=== PATIENT | male | born 1990 | race Caucasian/White ===

== ENCOUNTER → 2023-04-23 | Outpatient (CLI) | payer OTHER ==
[~2023-04-23] MED LIST: ISOVUE-300 61% 100ML VIAL As Ordered ONE; LIDOCAINE 1% MDV 20ML VIAL As Ordered ONE; PROHANCE 279.3MG/ML 5ML VIAL As Ordered ONE
== END ==
LOC: M RAD 06:13
PROVIDERS: ATTEND Physician Assistant
DX: M19.011 Primary osteoarthritis, right shoulder (principal); M25.511 Pain in right shoulder; Z13.89 Encounter for screening for other disorder
CPT/HCPCS: 23350; 73223; 77002; A9576; Q9967

== ENCOUNTER 2023-06-30 09:53 | Emergency (ER) | payer OTHER ==
[~2023-06-30] VITALS: Ht 177.8 cm; Wt 63.6 kg
[2023-06-30 10:55] LABS: BASO % 0.2 % (0.0-1.0); EOS % 0.1 % (0.0-3.0); HEMATOCRIT 46.9 % (42.0-52.0); HEMOGLOBIN 15.3 g/dl (13.5-17.5); LYMPH # 0.3 10^3/uL (1.5-5.0); MEAN CORPUSCULAR HEMOGLOBIN 29.5 pg (27.0-33.0); MEAN CORPUSCULAR HGB CONC 32.6 g/dl (32.0-36.5); MEAN CORPUSCULAR VOLUME 90.5 fl (80.0-96.0); MONO # 0.5 10^3/uL (0.0-0.8); MONO % 2.9 % (2.0-8.0); NEUTROPHILS # 15.3 10^3/uL (1.5-8.5); NEUTROPHILS % 94.4 % (36.0-66.0); PLATELET COUNT, AUTOMATED 229 10^3/uL (150-450); RED BLOOD COUNT 5.18 10^6/uL (4.30-6.10); WHITE BLOOD COUNT 16.2 10^3/uL (4.0-10.0)
[2023-06-30 11:21] LABS: LIPASE 31 U/L (12-53)
[2023-06-30 11:23] LABS: ALBUMIN 4.1 G/DL (3.2-5.2); ALKALINE PHOSPHATASE 33 U/L (46-116); ALT/SGPT 31 U/L (7.0-40); AST/SGOT 19 U/L (<34); BILIRUBIN,DIRECT 0.3 MG/DL (<0.4); BILIRUBIN,TOTAL 1.1 MG/DL (0.3-1.2); BLOOD UREA NITROGEN 16 MG/DL (9-23); CALCIUM LEVEL 9.2 MG/DL (8.5-10.1); CARBON DIOXIDE LEVEL 24 MMOL/L (20-31); CHLORIDE LEVEL 106 MMOL/L (98-107); CREATININE FOR GFR 0.74 MG/DL (0.70-1.30); GLOMERULAR FILTRATION RATE > 60.0 (>60); GLUCOSE, FASTING 105 MG/DL (60-100); SODIUM LEVEL 140 MMOL/L (136-145); TOTAL PROTEIN 6.7 G/DL (5.7-8.2)
[2023-06-30 11:26] LABS: RSV AMPLIFICATION NEGATIVE (NEGATIVE)
[2023-06-30] MEDS ORDERED: ISOVUE-370 76% 100ML VIAL As Ordered ONE (12:36)
[2023-06-30 12:42] LABS: CK-MB VALUE MASS < 1.0 NG/ML (<3.6)
[2023-06-30 13:00] LABS: CPK CREATINE PHOSPHOKINASE 168 U/L (46-171); MB/CK RELATIVE INDEX 0.59 (< OR =4)
[2023-06-30] MEDS: NS 1,000 ML IV ONE (13:12)
[2023-06-30] MEDS: ONDANSETRON 4MG 2ML VIAL IV ONE (13:12)
[2023-06-30 13:55] LABS: CK-MB VALUE MASS < 1.0 NG/ML (<3.6)
[2023-06-30 13:58] LABS: CPK CREATINE PHOSPHOKINASE 139 U/L (46-171); MB/CK RELATIVE INDEX 0.71 (< OR =4)
[2023-06-30] MEDS ORDERED: D 50CAP2 PO (15:11)
[2023-06-30] MEDS ORDERED: TIZA2TA PO (15:11)
[2023-06-30] MEDS ORDERED: HOME MED LIST COMPLETE! XX SCH (15:15)
[2023-06-30] MEDS ORDERED: ONDA4TAB6 PO (15:25)
[2023-06-30 15:30] VITALS: BP 104/59; TEMP 98.8; O2SAT 98
== END 2023-06-30 15:46 | disposition home or self-care (01) ==
LOC: EDBD 09:53 → M ED 09:53
DX: S09.90XA Unspecified injury of head, initial encounter (principal); R55 Syncope and collapse; N13.0 Hydronephrosis with ureteropelvic junction obstruction; K58.9 Irritable bowel syndrome, unspecified; Z79.83 Long term (current) use of bisphosphonates; Z79.899 Other long term (current) drug therapy; Y92.009 Unspecified place in unspecified non-institutional (private) residence as the place of occurrence of the external cause; Y93.89 Activity, other specified; Y99.9 Unspecified external cause status
CPT/HCPCS: 70450; 71046; 72125; 74177; 80053; 81001; 82248; 82550; 82553; 83605; 83690; 84484; 85025; 87040; 87631; 93005; 96361; 96374; 99285; J2405; Q9967